=== PATIENT | female | born 1945 | race Caucasian/White ===

== ENCOUNTER → 2024-05-05 10:04 | Outpatient (REF) | payer MEDICARE, BC, SELFPAY | LOC: HWCARD 10:04 | PROVIDERS: ATTENDING PHYSICIAN Physical Medicine & Rehabilitation; FAMILY PHYSICIAN Internal Medicine | DX: Z01.818 Encounter for other preprocedural examination (principal) | CPT/HCPCS: 93005 ==

== ENCOUNTER → 2024-09-20 11:16 | Outpatient (REF) | payer MEDICARE, BC, SELFPAY | LOC: PAVMRI 11:16 | PROVIDERS: ATTENDING PHYSICIAN Nurse Practitioner Family; FAMILY PHYSICIAN Internal Medicine; REFERRING PHYSICIAN Neurological Surgery | DX: M54.16 Radiculopathy, lumbar region (principal); Z98.890 Other specified postprocedural states | CPT/HCPCS: 72148 ==

== ENCOUNTER → 2024-10-28 11:23 | Outpatient (REF) | payer MEDICARE, BC, SELFPAY | LOC: HWCARD 11:23 | PROVIDERS: ATTENDING PHYSICIAN Physical Medicine & Rehabilitation; FAMILY PHYSICIAN Internal Medicine | DX: Z01.818 Encounter for other preprocedural examination (principal) | CPT/HCPCS: 93005 ==